=== PATIENT | male | born 1975 | race African-American/Black ===

== ENCOUNTER 2020-01-20 17:37 | Emergency (ER) | payer SELFPAY ==
[2020-01-20] MEDS ORDERED: Diazepam 5 MG TAB ONE (18:03)
[2020-01-20] MEDS ORDERED: Morphine 4 MG/ML VIAL ONE (18:03)
[2020-01-20] MEDS ORDERED: HYDROcodone/Acetaminophen 10/325 mg Tablet ONE (18:11)
--- NOTE | 2020-01-20 18:33 | RAD ---
EXAM: Chest 2 views: HISTORY: Back and chest pain COMPARISON: None. FINDINGS: There is a normal-sized cardiomediastinal silhouette. There is no evidence of consolidation, mass, or pleural effusion. The bones are unremarkable. IMPRESSION: No evidence of acute cardiopulmonary disease
== END 2020-01-20 19:00 | disposition home or self-care (01) ==
LOC: ERS 17:37
DX: M54.6 Pain in thoracic spine (principal); E11.9 Type 2 diabetes mellitus without complications; I10 Essential (primary) hypertension
CPT/HCPCS: 71046; J2270